=== PATIENT | female | born 1980 | race Caucasian/White ===

== ENCOUNTER 2023-08-13 09:44 | Emergency (ER) | payer OTHER, SELFPAY ==
[2023-08-13 09:59] VITALS: BP 128/92; PULSE 114; RESP 18; TEMP 35.8; O2SAT 97; BMI 28.5
--- NOTE | 2023-08-13 14:30 | ED_ITS ---
HPI - General Adult General Chief complaint: General Medical Stated complaint: Withdrawal symptoms Time Seen by Provider: 08/13/23 14:22 Source: patient Mode of arrival: ambulatory Limitations: no limitations History of Present Illness ED Provider: Umang Gibson PA-C HPI narrative: This is a 43 yo female pmh opiod use disorder, tardive dyskinesia presents with withdrawal symptoms including tremors, shaking, pins and needles, as well as chills after not receiving her correct prescribed medications. Patient reports she was recently discharged from [facility] and her prescriptions she was prescribed were not given correctly (specifically Suboxone). Reports the last time she received her correct medications was yesterday morning. Patient is now at [facility]. Denies fever, chest pain, SOB, vomiting, diarrhea, constipation, trauma, falls, syncope, difficulty ambulating. Denies SI/HI. Patient states she previously was using Fentanyl but reports she has been sober for a little over a month. Related Data Home Medications ?Medication ?Instructions ?Recorded ?Confirmed buprenorphine 8 mg-naloxone 2 mg 1 film buccal DAILY 08/13/23 08/13/23 sublingual film buprenorphine 8 mg-naloxone 2 mg 2 film buccal DAILY 08/13/23 08/13/23 sublingual film clonazepam 1 mg tablet 1 mg PO BID 08/13/23 08/13/23 gabapentin 400 mg capsule 800 mg PO TID 08/13/23 08/13/23 methocarbamol 500 mg tablet 500 mg BID 08/13/23 08/13/23 mirtazapine 15 mg tablet 15 mg PO BEDTIME 08/13/23 08/13/23 nicotine 21 mg/24 hr daily 1 patch transdermal DAILY 08/13/23 08/13/23 transdermal patch omeprazole 40 mg capsule,delayed 40 mg PO DAILY 08/13/23 08/13/23 release quetiapine 100 mg tablet 100 mg PO BID 08/13/23 08/13/23 quetiapine 300 mg tablet 600 mg PO BEDTIME 08/13/23 08/13/23 thiothixene 5 mg PO BID 08/13/23 08/13/23 Previous Rx's ?Medication ?Instructions ?Recorded buprenorphine 8 mg-naloxone 2 mg 2 film buccal DAILY 7 days #21 ea 08/13/23 sublingual film (Suboxone) Allergies Allergy/AdvReac Type Severity Reaction Status Date / Time methocarbamol [From Robaxin] Allergy Seizure Verified 08/13/23 10:04 haloperidol [From Haldol] AdvReac Involuntary Verified 08/13/23 10:04 Spasms Review of Systems 2 Review of Systems: Yes all other systems are reviewed and are negative [facility] Past Medical History Attestation statement: The following information was validated with the patient. Source: old records reviewed and nursing notes reviewed Social History Social History Advance Directives: No Physical Exam ED Vital Signs: Vital Signs - 24 hr 08/13/23 09:59 Temperature 96.4 F L Pulse Rate 114 H Respiratory Rate 18 Blood Pressure 128/92 H Pulse Oximetry 97 Oxygen Delivery Method Room Air BMI result Body Mass Index 28.5 vss. Appearance: Alert.? Oriented X3.? No acute distress.?+Facial grimacing and facial tics, difficulty with speech secondary to this Head: Normocephalic, atraumatic, no step-offs or deformities Eyes: Pupils equal, round and reactive to light.? Neck: Normal inspection.? Neck supple.? CVS: Normal heart rate and rhythm.? Pulses normal.? Respiratory: No respiratory distress.? Breath sounds normal.? Abdomen: Soft and nontender.? Skin: Skin warm and dry.? Normal skin color.? Normal skin turgor.? Extremities: +Shaking and tremors to bilateral upper and lower extremities Back: No midline tenderness, no C-spine tenderness, full range of motion, no CVA tenderness bilaterally Neuro: Oriented X 3.? No motor deficit.? No sensory deficit. CN 2-12 intact Course Reevaluation(s) Reevaluation #1: Patient came from [facility] but was at [facility] where they were supposed to send meds to [facility]. Nurse spoke to [facility] who reached out to [facility] multiple times in regards to insurance info which they were not able to get. Information was finally able to be obtained from [facility] after nursing staff reached out. Suboxone dose was placed incorrectly initially. Will send correct dose to [facility] as confirmed on piece of paper from [facility] 10/02 two films in the am and one at 1700. All other prescriptions are correct and [facility] has now from [facility] so no need to send those from ED at this time. Time: 15:10 Reevaluation #2: Educated patient on diagnosis and treatment plan, answered all question, patient verbalizes understanding. At this time patient will be discharged home, advised to return with new or worsening symptoms. Educated on worrisome signs and symptoms and when to return. At this time I feel comfortable discharge home. Time: 15:23 Medications Administered Discontinued Medications Generic Name Dose Route Start Last Admin Trade Name Zay PRN Reason Stop Dose Admin Buprenorphine/Naloxone 1 film 08/13/23 14:51 08/13/23 15:14 Buprenorphine/Naloxone 8/2 Mg Film SUBLINGUAL 08/13/23 14:52 1 film ONCE ONE Administration Buprenorphine/Naloxone 1 film 08/13/23 15:07 08/13/23 15:14 Buprenorphine/Naloxone 8/2 Mg Film SUBLINGUAL 08/13/23 15:08 1 film ONCE ONE Administration Clonazepam 1 mg 08/13/23 15:07 08/13/23 15:13 Clonazepam 1 Mg Tablet PO 08/13/23 15:08 1 mg ONCE ONE Administration Medical Decision Making Medical Decision Making [facility] Narrative: 1430 43 yo female pmh opioid dependence and tardive dykinesia presents for withdrawl symtpoms including shaking, tremors, pins and needles, chills since yesterday after not recieving her prescribed medications (specifically Suboxone) PE: ?+Facial grimacing and facial tics, difficulty with speech secondary to this Extremities: +Shaking and tremors to bilateral upper and lower extremities Differential: Prescription management, withdrawal symptoms, exacerbation of tardive dyskinesia. Unlikely seizure, brain bleed, stroke, chorea, parkinsonism. Plan: Labs, prescription management Differential Diagnosis Differential Diagnoses: The differential diagnosis associated with the presentation includes Prescription management, withdrawal symptoms, exacerbation of tardive dyskinesia. Unlikely seizure, brain bleed, stroke, chorea, parkinsonism. Admission/Observation Consideration of admission/observation: Escalation of care including admission/observation considered unlikely Consult Healthcare Provider Management of the patient was discussed with: Video Poker Floorman (Humberto/ Sienna mcclure ) Lab Data [facility] Lab Attestation statement: I reviewed the patient's lab results. 08/13/23 14:32 08/13/23 14:32 Labs: Lab Results 08/13/23 Range/Units 14:32 WBC 7.0 (4.8-10.8) X10*3/uL RBC 4.10 L (4.20-5.50) X10*6/uL Hgb 12.3 (12.0-16.0) g/dl Hct 35.4 L (37.0-47.0) % MCV 86.3 (80.0-98.0) fL MCH 30.0 (27.0-33.0) pg MCHC 34.7 (31.0-35.0) g/dl RDW 13.8 (11.0-16.0) % Plt Count 456 H (160-400) X10*3/uL MPV 9.5 (9.4-12.3) fL Immature Gran % (Auto) 0.3 (0.0-0.4) % Neut % (Auto) 57.9 (45-73) % Lymph % (Auto) 32.7 (20-40) % Banks % (Auto) 6.0 (2-11) % Eos % (Auto) 2.7 (0-4) % Baso % (Auto) 0.4 (0-2) % Lymph # (Auto) 2.3 (1.2-4.9) X10*3/uL Banks # (Auto) 0.4 (0.1-1.2) X10*3/uL Eos # (Auto) 0.2 (0.0-0.4) X10*3/uL Baso # (Auto) 0.0 (0.0-0.2) X10*3/uL Abs Immat Gran (auto) 0.02 (0.00-0.03) X10*3/uL Absolute Neuts (auto) 4.1 (2.0-8.3) x10*3/uL Absolute Nucleated RBC 0.000 (0.0-0.012) X10*3/uL Nucleated RBC % (auto) 0.0 (0.0-0.2) /100WBC Sodium 143 (135-145) mmol/L Potassium 4.2 (3.3-5.1) mmol/L Chloride 104 (96-108) mmol/L Carbon Dioxide 27 (22-29) mmol/L Anion Gap 16 (12-20) BUN 10 (9-16) mg/dL Creatinine 0.68 (0.5-1.4) mg/dL Estim Creat Clear Calc 105.9 Estimated GFR > 60 Random Glucose 104 (60-115) mg/dL Calcium 10.3 H (8.4-10.2) mg/dL Magnesium 2.0 (1.6-2.6) mg/dL Total Bilirubin 0.2 (0.0-1.0) mg/dL AST 21 (5-31) U/L ALT 21 (0-31) U/L Alkaline Phosphatase 89 (39-117) U/L Total Protein 7.8 (6.5-8.0) g/dL Albumin 4.3 (3.5-5.0) g/dL Lipase 10 (8-78) U/L Urine Color Yellow Urine Appearance Clear Urine pH 7.5 (5.0-9.0) Ur Specific [place] 1.020 (1.005-1.025) Urine Protein Negative (Neg-Trace) mg/dL Urine Glucose (UA) Negative (Negative) mg/dL Urine Ketones Negative (Negative) mg/dL Urine Blood Negative (Negative) Urine Nitrite Negative (Negative) Ur Leukocyte Esterase Negative (Negative) Urine Opiates Screen Not Detected (Not Detect) Ur Buprenorphine Scrn Positive H (Not Detect) ng/mL Ur Oxycodone Screen Not Detected (Not Detect) ng/mL Urine Methadone Screen Not Detected (Not Detect) ng/mL Urine Fentanyl Screen Not Detected (Not Detect) Ur Barbiturates Screen Not Detected (Not Detect) Ur Phencyclidine Scrn Not Detected (Not Detect) Ur Amphetamines Screen Not Detected (Not Detect) U Benzodiazepines Scrn Not Detected (Not Detect) Urine Cocaine Screen Not Detected (Not Detect) U Marijuana (THC) Screen Not Detected (Not Detect) Ethyl Alcohol < 10 mg/dL Chronic Conditions Patient?s care impacted by: Other (Opioid dependence, tardive dyskinesia) Social Determinants Patient?s care significantly limited by Social Determinants of Health including: Inadequate housing, Problems related to primary support group and Other Social Determinant of Health Discharge Plan Discharge Clinical Impression: Medication refill, Opiate use Patient Disposition: Home, Self-Care Instructions: Opioid Use Disorder (ED) Additional Instructions: Take your medications as prescribed. If you were prescribed antibiotics today, it is important that you take your medication to their entirety, do not skip any doses, do not finish them early. Follow-up with your primary care provider this week. Return to the emergency department with new or worsening symptoms. Such as fevers, chills, chest pain, shortness of breath, nausea, vomiting, dizziness, headache, vision changes, lethargy In case of emergency call 911 Prescriptions: New buprenorphine-naloxone [Suboxone] 8-2 mg film 2 film buccal DAILY 7 Days Qty: 21 0RF Rx Instructions: Take two films in the AM and one film at 1700. No Action methocarbamol 500 mg Tablet 500 mg BID quetiapine 300 mg Tablet 600 mg PO BEDTIME Rx Instructions: 2 tablets PO QHS gabapentin 400 mg Capsule 800 mg PO TID clonazepam 1 mg Tablet 1 mg PO BID omeprazole 40 mg Capsule,Delayed Release(Dr/Ec) 40 mg PO DAILY quetiapine 100 mg Tablet 100 mg PO BID nicotine 21 mg/24 hr Patch 24 Hour 1 patch TRANSDERMAL DAILY mirtazapine 15 mg Tablet 15 mg PO BEDTIME buprenorphine-naloxone 8-2 mg Film 2 film BUCCAL DAILY Rx Instructions: place 1 film on inside of (each) cheek buprenorphine-naloxone 8-2 mg Film 1 film BUCCAL DAILY thiothixene 5 mg 5 mg PO BID Referrals: ED Physician,Generic [Physician] - 2 days Stand Alone Forms: Work/School Release Print Language: Greenlandic
[2023-08-13 14:38] LABS: MANUAL DIFF FLAG NO
[2023-08-13 14:42] LABS: Appearance Urine Clear; Color Urine Yellow; Glucose Urine UA Negative (Negative); Leukocyte Esterase Urine Negative (Negative); Nitrite Urine Negative (Negative); PH 7.5 (5.0-9.0); Urine Blood Negative (Negative); Urine Ketones Negative (Negative); Urine Protein Negative (Neg-Trace)
[2023-08-13 14:43] LABS: Basophils Percent Auto 0.4 % (0-2); Eosinophils Absolute Auto 0.2 X10*3/uL (0.0-0.4); Eosinophils Percent Auto 2.7 % (0-4); Hematocrit 35.4 % (37.0-47.0); Hemoglobin 12.3 g/dl (12.0-16.0); Imm Gran Abs Auto 0.02 X10*3/uL (0.00-0.03); Imm Gran Pct Auto 0.3 % (0.0-0.4); Lymphocytes Absolute Auto 2.3 X10*3/uL (1.2-4.9); Lymphocytes Percent Auto 32.7 % (20-40); Mean Corpuscular HGB Conc 34.7 g/dl (31.0-35.0); Mean Corpuscular Volume 86.3 fL (80.0-98.0); Mean Platelet Volume 9.5 fL (9.4-12.3); Monocytes Absolute Auto 0.4 X10*3/uL (0.1-1.2); Neutrophils Absolute Auto 4.1 x10*3/uL (2.0-8.3); Neutrophils Percent Auto 57.9 % (45-73); Platelet Count 456 X10*3/uL (160-400); Red Cell Distribution Width 13.8 % (11.0-16.0)
[2023-08-13 14:51] LABS: Amphetamine Screen Urine Not Detected (Not Detect); Barbiturates, Urine Not Detected (Not Detect); Benzodiazepines Screen Urine Not Detected (Not Detect); Buprenorphine Scr Positive (Not Detect); Cannabinoid Screen Urine Not Detected (Not Detect); Cocaine Screen Urine Not Detected (Not Detect); Fentanyl, urine Not Detected (Not Detect); Methadone Screen, Urine Not Detected (Not Detect); Opiate Screen Urine Not Detected (Not Detect); Oxycodone Screen Urine Not Detected (Not Detect); Phencyclidine Screen Urine Not Detected (Not Detect)
[2023-08-13 14:56] LABS: Alanine Aminotransferase 21 U/L (0-31); Albumin Level 4.3 g/dL (3.5-5.0); Alkaline Phosphatase 89 U/L (39-117); Anion Gap 16 (12-20); Aspartate Amino Transferase 21 U/L (5-31); Bilirubin Total 0.2 mg/dL (0.0-1.0); Blood Urea Nitrogen 10 mg/dL (9-16); Calcium 10.3 mg/dL (8.4-10.2); Carbon Dioxide 27 mmol/L (22-29); Chloride 104 mmol/L (96-108); Creatinine Clr Calc Pharmacy 105.9; Estimated Glomerular Filt Rate > 60; Ethanol < 10 mg/dL; Glucose Random 104 mg/dL (60-115); Lipase 10 U/L (8-78); Potassium 4.2 mmol/L (3.3-5.1); Sodium 143 mmol/L (135-145); Total Protein 7.8 g/dL (6.5-8.0)
[2023-08-13] MEDS: clonazePAM 1 MG TABLET PO (15:13)
[2023-08-13] MEDS: Buprenorphine/Naloxone 8/2 mg FILM 1 FILM SUBLINGUAL ×2 (15:14)
[2023-08-13 16:26] VITALS: BP 128/92; PULSE 114; RESP 18; TEMP 35.8; O2SAT 97
== END 2023-08-13 16:26 | disposition home or self-care (01) ==
PROVIDERS: Physician Assistant; Emergency Provider Emergency Medicine Emergency Medical Services
DX: F11.90 Opioid use, unspecified, uncomplicated (principal); G24.01 Drug induced subacute dyskinesia; Z76.0 Encounter for issue of repeat prescription; Z79.899 Other long term (current) drug therapy
CPT/HCPCS: 36415; 80053; 80307; 81003; 83690; 83735; 85025; 99282; 99284

== ENCOUNTER 2024-09-29 20:05 | Inpatient (IN) | payer OTHER, SELFPAY ==
--- NOTE | ~2024-09-29 | XR_ITS ---
CLINICAL HISTORY: PNA 2 view chest x-ray. Comparison: None provided Findings: There are possible faint bilateral reticulonodular opacities throughout the lungs. There is no consolidation or effusion. Cardiomediastinal silhouette is within normal limits. IMPRESSION: Possible faint bilateral reticulonodular opacities throughout the lungs. Atypical infection is possible. This document has been electronically signed by: Sarwat Carr MD on 10/06/2024 00:54:37
[2024-09-29 21:39] VITALS: BP 122/63; PULSE 70; RESP 16; TEMP 36.8; O2SAT 96
[2024-09-29 21:41] VITALS: BMI 26.6
[2024-09-29] MEDS: oxyBUTYnin chloride ER 5 MG TAB.ER.24 PO (22:45)
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
[2024-09-30 07:00] VITALS: BMI 25.9
[2024-09-30 07:32] VITALS: BP 117/67; PULSE 80; RESP 18; TEMP 36.8; O2SAT 96
[2024-09-30 08:19] LABS: Hemoglobin A1C 88.1623 umol/L; Total Hemoglobin (HGBA1C) 2673.8357 umol/L
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
[2024-09-30 08:40] LABS: Cholesterol 162 mg/dL (<200); HDL Cholesterol 35 mg/dL (>40); Magnesium 2.1 mg/dL (1.6-2.6); Triglycerides 122 mg/dL (<150)
[2024-09-30] MEDS: Nicotine 21 MG PATCH.TD24 TRANSDERMA (08:42)
[2024-09-30 08:46] LABS: Free T4 (Free Thyroxine) 1.04 ng/dL (0.71-1.85); Thyroid Stimulating Hormone 0.94 uIU/mL (0.32-4.0)
[2024-09-30 08:58] LABS: Folate 11.5 ng/mL (> or = 4.0); Vitamin B12 678 pg/mL (200-900)
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
[2024-09-30] MEDS: Albuterol Sulfate 90 MCG 8 GM INHALER 2 PUFF INHALE (10:47)
[2024-09-30] MEDS: Tiotropium Bromide 2.5 mcg 1 PUFF/2.5 MCG MIST.INHAL 2 PUFF INHALE (12:18)
[2024-09-30 16:15] VITALS: BP 121/75; PULSE 62; RESP 18; TEMP 37.4; O2SAT 98
--- NOTE | 2024-09-30 16:23 | PC.NURSE ---
Patient current medication list verified by Rosio Botello [facility] [place], [place] [phone].
--- NOTE | 2024-09-30 17:15 | PHA.MEDREC ---
Pharmacy Consult ? Medication Reconciliation Pharmacy has reviewed the medication reconciliation completed by nursing. Confirmed with RN that the correct Beztropine dose is 0.5mg BID, and asked RN to update this in the med rec.
[2024-09-30 20:00] VITALS: BP 147/85; PULSE 86; RESP 16; TEMP 37.2; O2SAT 98
[2024-09-30] MEDS: traZODone HCL 25 MG HALFTAB 75 MG PO (20:21)
[2024-10-01] MEDS: Nicotine 21 MG PATCH.TD24 TRANSDERMA (08:38)
[2024-10-01] MEDS: Tiotropium Bromide 2.5 mcg 1 PUFF/2.5 MCG MIST.INHAL 2 PUFF INHALE (08:38)
--- NOTE | 2024-10-01 10:20 | P.PNPSI_ITS ---
Subjective Subjective Date of Service: 10/01/24 Reason For Visit: Depression d/o unspecified,alcohol uncomplicated Subjective Notes: Conditional Voluntary Interim History: Active on unit. social with peers. attending groups. retracted 3 day notice. Continues to report feeling anxious. focused on sobriety; plans on attending meets. denies withdrawal symptoms; DC CIWA. denies SI/HI/VH/AH. pt is requesting increase in trazodone to help with sleep. Trazodone increased to 100mg PO bedtime. Start: Clonidine 0.1mg PO BID PRN anxiety. Medication Compliance: Yes Side effects from medications: No Attending Groups: Yes Mental Status Exam Mental Status Exam Narrative: Pt is alert and oriented; behavior is cooperative and calm; dressed in casual attire; mood is described as anxious ; eye contact appropriate; Speech is normal rate, volume and not pressured; thought process is organized and goal directed; Thought content is on tx; denies SI/HI/VH/AH. Diagnostics Vital Signs (24Hr): Vital Signs - 24 hr 09/30/24 16:15 09/30/24 20:00 Temperature 99.3 F 98.9 F Pulse Rate 62 86 Respiratory Rate 18 16 Blood Pressure 121/75 147/85 H Pulse Oximetry 98 98 Oxygen Delivery Method Room Air Room Air BMI result Body Mass Index 25.9 Labs Labs: Laboratory Results - last 48 hr 09/30/24 08:00 Estimat Average Glucose 103 Hemoglobin A1c % 5.2 Magnesium 2.1 Triglycerides 122 Cholesterol 162 LDL Cholesterol, Calc 103 H HDL Cholesterol 35 L Vitamin B12 678 Folate 11.5 TSH 0.94 Free T4 1.04 Medications Medications Current Medications Acetaminophen (Acetaminophen 325 Mg Tablet) 650 mg PO Q6H PRN PRN Reason: Headache/Pain, Scale 1-10 Last Admin: 09/30/24 16:39 Dose: 650 mg Al Hydroxide/Mg Hydroxide (Magnesium Hydrox/Alum Hydrox 30 Ml Oral.Susp) 30 ml PO Q6H PRN PRN Reason: Heartburn/Nausea Albuterol Sulfate (Albuterol Sulfate 90 Mcg 8 Gm Inhaler) 2 puff INHALE RQ6H PRN PRN Reason: Shortness of Breath Last Admin: 09/30/24 10:47 Dose: 2 puff Benztropine Mesylate (Benztropine Mesylate 0.5 Mg Tablet) 0.5 mg PO BID [place]O Last Admin: 10/01/24 08:34 Dose: 0.5 mg Clonazepam (Clonazepam 0.5 Mg Tablet) 0.5 mg PO TID PRN PRN Reason: Anxiety Last Admin: 10/01/24 08:57 Dose: 0.5 mg Gabapentin (Gabapentin 400 Mg Capsule) 800 mg PO TID [facility] Last Admin: 10/01/24 08:34 Dose: 800 mg Hydroxyzine HCl (Hydroxyzine Hcl 25 Mg Tablet) 25 mg PO Q6H PRN PRN Reason: mild anxiety Lorazepam (Lorazepam 1 Mg Tablet) 1 mg PO Q2H PRN PRN Reason: ciwa 6-10 Last Admin: 09/30/24 20:23 Dose: 1 mg Lorazepam (Lorazepam 1 Mg Tablet) 2 mg PO Q2H PRN PRN Reason: ciwa 11+ Lurasidone HCl (Lurasidone Hcl 20 Mg Tablet) 20 mg PO BEDTIME [facility] Last Admin: 09/30/24 20:23 Dose: 20 mg Magnesium Hydroxide (Milk Of Magnesia 30 Ml Oral.Susp) 30 ml PO DAILY PRN PRN Reason: Constipation Methocarbamol (Methocarbamol 500 Mg Tablet) 500 mg PO BID [facility] Last Admin: 10/01/24 08:35 Dose: 500 mg Nicotine (Nicotine 21 Mg Patch.Td24) 21 mg TRANSDERMA DAILY [facility] Last Admin: 10/01/24 08:38 Dose: 21 mg Nicotine Polacrilex (Nicotine Polacrilex 2 Mg Gum) 4 mg BUCCAL Q2H PRN PRN Reason: Nicotine Cravings Non-Formulary Medication (Tiotropium-Olodaterol [Stiolto Respimat]) 2 inhalation INHALE DAILY [facility] Olanzapine (Olanzapine 5 Mg Tablet) 5 mg PO BID [facility] Last Admin: 10/01/24 08:34 Dose: 5 mg Omeprazole (Omeprazole 40 Mg Capsule.Dr) 40 mg PO DAILY@0630 [facility] Last Admin: 10/01/24 06:07 Dose: 40 mg Oxybutynin Chloride (Oxybutynin Chloride 5 Mg Tablet) 5 mg PO DAILY [facility] Last Admin: 10/01/24 08:34 Dose: 5 mg Thiamine HCl (Thiamine Hcl 100 Mg Tablet) 100 mg PO DAILY [facility] Last Admin: 10/01/24 08:48 Dose: Not Given Tiotropium [place] (Tiotropium [place] 2.5 Mcg 1 Puff/2.5 Mcg Mist.Inhal) 2 puff INHALE RDAILY [facility] Last Admin: 10/01/24 08:38 Dose: 2 puff Trazodone HCl (Trazodone Hcl 25 Mg Halftab) 75 mg PO BEDTIME [facility] Last Admin: 09/30/24 20:21 Dose: 75 mg Valacyclovir HCl (Valacyclovir Hcl 500 Mg Tablet) 500 mg PO BID [facility] Last Admin: 10/01/24 08:34 Dose: 500 mg Allergies Allergies Allergy/AdvReac Type Severity Reaction Status Date / Time haloperidol (From Haldol) AdvReac Involuntary Verified 08/13/23 10:04 Spasms Assessment & Plan Assessment & Plan (1) Bipolar disorder: Status: Acute Code(s): F31.9 - Bipolar disorder, unspecified (2) PTSD (post-traumatic stress disorder): Status: Acute Code(s): F43.10 - Post-traumatic stress disorder, unspecified (3) Alcohol use disorder: Status: Acute Code(s): F10.90 - Alcohol use, unspecified, uncomplicated Plan Patient is a 44 year old female with hx of bipolar d/o, PTSD, alcohol use d/o who self presented to ER d/t suicidal ideation secondary to increased anxiety and depression from relapsing on alcohol. Plan: CV 15 minute safety checks continue home medications obtain collateral referral to outpatient psychiatric prescriber referral to substance abuse program encourage groups discharge planning 10/01: Active on unit. social with peers. attending groups. retracted 3 day notice. Continues to report feeling anxious. focused on sobriety; plans on attending meets. denies withdrawal symptoms; DC CIWA. denies SI/HI/VH/AH. pt is requesting increase in trazodone to help with sleep. Trazodone increased to 100mg PO bedtime. Start: Clonidine 0.1mg PO BID PRN anxiety. Patient educated on: diagnosis, medication risk/benefits and therapeutic strategies Reason for continued inpatient stay Substantial Risk for: med/psych decompensation Time Spent With Patient Time: Total time managing care of this patient today _20___ minutes.
[2024-10-01 11:02] VITALS: BP 121/74; PULSE 83; RESP 17; TEMP 36.3; O2SAT 99
[2024-10-01 15:10] VITALS: BP 108/65
[2024-10-01 19:57] VITALS: BP 91/53; PULSE 74; TEMP 36.8; O2SAT 94
[2024-10-02] MEDS: Nicotine Polacrilex Lozenge 2 MG LOZENGE BUCCAL ×2 (07:01→20:42)
[2024-10-02 07:46] VITALS: BP 89/51; PULSE 62; RESP 16; TEMP 36.6; O2SAT 98
[2024-10-02] MEDS: Nicotine 21 MG PATCH.TD24 TRANSDERMA (08:27)
[2024-10-02] MEDS: Tiotropium Bromide 2.5 mcg 1 PUFF/2.5 MCG MIST.INHAL 2 PUFF INHALE (08:29)
[2024-10-02] MEDS: Magnesium Hydrox/Alum Hydrox 30 ML ORAL.SUSP PO (16:12)
[2024-10-02 20:22] VITALS: BP 107/59; PULSE 71; RESP 16; TEMP 36.4; O2SAT 94
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
[2024-10-03] MEDS: Nicotine Polacrilex Lozenge 2 MG LOZENGE BUCCAL (07:14)
[2024-10-03 08:00] VITALS: BP 98/56; PULSE 70; RESP 16; TEMP 36.2; O2SAT 93
[2024-10-03] MEDS: Nicotine 21 MG PATCH.TD24 TRANSDERMA (08:13)
[2024-10-03] MEDS: Tiotropium Bromide 2.5 mcg 1 PUFF/2.5 MCG MIST.INHAL 2 PUFF INHALE (08:15)
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
[2024-10-04 08:00] VITALS: BP 108/65; PULSE 80; RESP 16; TEMP 36.4; O2SAT 99
[2024-10-04] MEDS: Tiotropium Bromide 2.5 mcg 1 PUFF/2.5 MCG MIST.INHAL 2 PUFF INHALE (08:24)
[2024-10-04] MEDS: Nicotine Polacrilex Lozenge 2 MG LOZENGE BUCCAL ×3 (08:26→15:43)
[2024-10-04] MEDS: Nicotine 21 MG PATCH.TD24 TRANSDERMA (08:26)
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
[2024-10-04 11:55] VITALS: BP 114/74
[2024-10-04 16:30] LABS: Resp Syncy Virus RNA Qual PCR NEGATIVE (Negative); SARS COV2 PCR INHOUSE NEGATIVE (Negative)
[2024-10-04 20:00] VITALS: BP 125/76; PULSE 56; RESP 16; TEMP 36.4; O2SAT 96
--- NOTE | 2024-10-04 21:07 | PC.NURSE ---
submitted 3 day notice UP 10/07
[2024-10-05] MEDS: Milk of Magnesia 30 ML ORAL.SUSP PO (06:25)
[2024-10-05] MEDS: Albuterol Sulfate 90 MCG 8 GM INHALER 2 PUFF INHALE ×2 (06:25→20:34)
[2024-10-05] MEDS: Tiotropium Bromide 2.5 mcg 1 PUFF/2.5 MCG MIST.INHAL 2 PUFF INHALE ×2 (06:27→06:43)
--- NOTE | 2024-10-05 06:41 | PC.NURSE ---
Christine reporting some constipation. Patient given MOM PO prn and some prune juice. Pending effects.
--- NOTE | 2024-10-05 06:50 | PC.NURSE ---
Christine reported some shortness of breath. Patient requested her Spiriva inhaler early. Was given at 0640, scheduled for 0800. Patient also given albuterol inhaler at this time.
[2024-10-05 07:54] VITALS: BP 106/68; PULSE 88; RESP 14; TEMP 36.7; O2SAT 92
[2024-10-05] MEDS: Nicotine 21 MG PATCH.TD24 TRANSDERMA (08:34)
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
[2024-10-05 20:25] VITALS: BP 114/60; PULSE 78; RESP 20; TEMP 37.3; O2SAT 91
--- NOTE | 2024-10-05 20:50 | PC.NURSE ---
Pt c/o productive cough and feeling like she couldn't breathe . Temp 99.1, O2 sat 91% on room air. Hx COPD. Pt concerned that she had pneumonia, as she has had it in the past. Nicole Pereyra NP aware and hospitalist consult ordered.
--- NOTE | 2024-10-05 23:05 | PC.NURSE ---
Addendum entered by Sabrina Yan RN 10/06/24 07:19: Pt received scheduled HS olanzapine around 0030 after being seen by hospitalist, as she was more awake after consult and having chest xray and labs completed. Original Note: Pt was difficult to wake for HS meds. When pt did sit up to take meds she appeared sedated and dropped a pill on the floor. By the time TW pulled a new tablet and returned to her room the pt was back asleep and difficult to wake. She did not receive her HS olanzapine 10 mg. Provider aware.
--- NOTE | 2024-10-05 23:54 | HO.PM.IMCN ---
History of Present Illness Data of Consult Service Date: 10/05/24 Requesting physician: Nicole Pereyra Primary Care Provider: Unknown Physician HPI Reason for consult: ? PNA Pt is a 44 y female with PMH alcohol use disorder, substance use disorder, COPD, tobacco dependence, recent pneumonia and sepsis at [facility] 1 week prior to admission, HSV, PTSD, bipolar disorder was seen per consultation ordered by Psychiatry for suspicion for pneumonia. Patient observed in bed with staff present, awake but took some time to respond. Patient is currently alert and orientated x3 and can verbalize productive cough that is yellow to green that has gotten worse over the last 24 hours. Patient feels like she has a fever but denies chills or night sweats. Patient denies any nausea or vomiting or abdominal pain. Patient denies any chest pain or shortness of breath at rest. Patient can get somewhat winded when exerting herself. No evidence of hypoxia. Patient was an active smoker prior to admission but states she is not consistently smoked since her admission at [facility] prior to this admission for pneumonia and sepsis. Patient currently cooperative with care and agreeable to chest x-ray, labs, medications. Review of Systems Review of Systems: Pt denies chest pain, SOB at rest but is having a productive cough with green yellow sputum, worse tonight than yesterday. Patient denies a sore throat, dental issues or trouble swallowing. Pt reports no chills but is feeling feverish. Pt denies any diarrhea or constipation. Pt does smoke prior to coming in 6-8 cigraettes per day. Yes all other systems are reviewed and are negative [facility] Medical History (Updated 10/06/24 @ 00:11 by EVARISTO Watkins) COPD (chronic obstructive pulmonary disease) Substance use disorder Tobacco dependence Pneumonia Cognitive capacity: A/O X3 Functional capacity: independent ambulation Patient : No (Testing ordered) Social History Household Members: Family and None Housing: Homeless Do you presently have visiting nurse or other home services: No Patient Tobacco Use Status: Current everyday Tobacco user Tobacco use type: Cigarette e-Cigarette/Vaping Use: Never Used Second Hand Smoke Exposure: No service: No Sexual orientation: Straight/Heterosexual Ebola Risk: Travel/Contact With Anyone From Affected Area/s: No Has Patient Experienced Ebola Symptoms: No Meds Allergies Allergy/AdvReac Type Severity Reaction Status Date / Time haloperidol (From Haldol) AdvReac Involuntary Verified 08/13/23 10:04 Spasms Active Medications: Current Medications Acetaminophen (Acetaminophen 325 Mg Tablet) 650 mg PO Q6H PRN PRN Reason: Headache/Pain, Scale 1-10 Last Admin: 10/03/24 20:30 Dose: 650 mg Al Hydroxide/Mg Hydroxide (Magnesium Hydrox/Alum Hydrox 30 Ml Oral.Susp) 30 ml PO Q6H PRN PRN Reason: Heartburn/Nausea Last Admin: 10/02/24 16:12 Dose: 30 ml Albuterol Sulfate (Albuterol Sulfate 90 Mcg 8 Gm Inhaler) 2 puff INHALE RQ6H PRN PRN Reason: Shortness of Breath Last Admin: 10/05/24 20:34 Dose: 2 puff Azithromycin (Azithromycin 500 Mg Tablet) 500 mg PO ONCE ONE Stop: 10/05/24 23:49 Azithromycin (Azithromycin 250 Mg Tablet) 250 mg PO Q24H COUNTS INCLUDE 234 BEDS AT THE [facility] Benztropine Mesylate (Benztropine Mesylate 0.5 Mg Tablet) 0.5 mg PO BID COUNTS INCLUDE 234 BEDS AT THE [facility] Last Admin: 10/05/24 22:44 Dose: 0.5 mg Clonazepam (Clonazepam 0.5 Mg Tablet) 0.5 mg PO BID PRN PRN Reason: Anxiety Clonidine HCl (Clonidine Hcl 0.1 Mg Tablet) 0.1 mg PO BID PRN; Protocol PRN Reason: Anxiety, mild Last Admin: 10/04/24 11:55 Dose: 0.1 mg Gabapentin (Gabapentin 400 Mg Capsule) 800 mg PO TID COUNTS INCLUDE 234 BEDS AT THE [facility] Last Admin: 10/05/24 22:44 Dose: 800 mg Guaifenesin (Guaifenesin 200 Mg/10 Ml 10 Ml Liquid) 10 ml PO Q6H PRN PRN Reason: Cough Ibuprofen (Ibuprofen 800 Mg Tablet) 800 mg PO ONCE ONE Stop: 10/05/24 23:49 Magnesium Hydroxide (Milk Of Magnesia 30 Ml Oral.Susp) 30 ml PO DAILY PRN PRN Reason: Constipation Last Admin: 10/05/24 06:25 Dose: 30 ml Methocarbamol (Methocarbamol 500 Mg Tablet) 500 mg PO BID COUNTS INCLUDE 234 BEDS AT THE [facility] Last Admin: 10/05/24 22:44 Dose: 500 mg Nicotine (Nicotine 21 Mg Patch.Td24) 21 mg TRANSDERMA DAILY COUNTS INCLUDE 234 BEDS AT THE [facility] Last Admin: 10/05/24 08:34 Dose: 21 mg Nicotine Polacrilex (Nicotine Polacrilex 2 Mg Gum) 4 mg BUCCAL Q2H PRN PRN Reason: Nicotine Cravings Nicotine Polacrilex (Nicotine Polacrilex Lozenge 2 Mg Lozenge) 2 mg BUCCAL Q2H PRN PRN Reason: Nicotine Cravings Last Admin: 10/04/24 15:43 Dose: 2 mg Olanzapine (Olanzapine 10 Mg Tablet) 10 mg PO BID COUNTS INCLUDE 234 BEDS AT THE [facility] Last Admin: 10/05/24 23:01 Dose: Not Given Omeprazole (Omeprazole 40 Mg Capsule.Dr) 40 mg PO DAILY@0630 COUNTS INCLUDE 234 BEDS AT THE [facility] Last Admin: 10/05/24 06:17 Dose: 40 mg Oxybutynin Chloride (Oxybutynin Chloride 5 Mg Tablet) 5 mg PO BEDTIME COUNTS INCLUDE 234 BEDS AT THE [facility] Last Admin: 10/05/24 22:44 Dose: 5 mg Tiotropium [place] (Tiotropium [place] 2.5 Mcg 1 Puff/2.5 Mcg Mist.Inhal) 2 puff INHALE RDAILY COUNTS INCLUDE 234 BEDS AT THE [facility] Last Admin: 10/05/24 06:43 Dose: 2 puff Trazodone HCl (Trazodone Hcl 100 Mg Tablet) 100 mg PO BEDTIME COUNTS INCLUDE 234 BEDS AT THE [facility] Last Admin: 10/05/24 22:44 Dose: 100 mg Valacyclovir HCl (Valacyclovir Hcl 500 Mg Tablet) 500 mg PO BID COUNTS INCLUDE 234 BEDS AT THE [facility] Last Admin: 10/05/24 22:44 Dose: 500 mg Home Medications ?Medication ?Instructions ?Recorded ?Confirmed ?Last Taken ?Type gabapentin 400 mg capsule 800 mg PO TID 08/13/23 09/29/24 08/12/23 History (Neurontin) methocarbamol 500 mg tablet 500 mg PO BID 08/13/23 09/29/24 08/13/23 14:51 History nicotine 21 mg/24 hr daily 1 patch transdermal DAILY 08/13/23 09/29/24 Unknown History transdermal patch (Nicoderm CQ) benztropine 0.5 mg tablet 0.5 mg PO BID 09/30/24 09/30/24 Unknown History clonazepam 0.5 mg tablet (Klonopin) 0.5 mg PO TID PRN Anxiety 09/30/24 09/30/24 Unknown History olanzapine 5 mg tablet 5 mg PO BID 09/30/24 09/30/24 Unknown History oxybutynin chloride 5 mg tablet 5 mg PO DAILY 09/30/24 09/30/24 Unknown History tiotropium 2.5 mcg-olodaterol 2.5 2 inh inhalation DAILY 09/30/24 09/30/24 Unknown History mcg/actuation mist for inhalation (Stiolto Respimat) trazodone 50 mg tablet 75 mg PO BEDTIME 09/30/24 09/30/24 Unknown History valacyclovir 500 mg tablet 500 mg PO BID 09/30/24 09/30/24 Unknown History (Valtrex) Physical Exam Vital Signs and Narrative: Vital Signs: Last Vital Signs Temp 99.1 F 10/05/24 20:25 Pulse 78 10/05/24 20:25 Resp 20 10/05/24 20:25 BP 114/60 10/05/24 20:25 Pulse Ox 91 L 10/05/24 20:25 O2 Del Method Room Air 10/05/24 20:25 BMI result Body Mass Index 25.9 Awake and alert, somewhat groggy as patient was awakened after bedtime for this intervention. Neuro: CN II-X11 intact, no deficits, visual acuity intact EYES: PERRLA, EOM intact, sclerae nonicteric, conjunctiva pink ENT: hearing intact, no issues with swallowing, uvula midline, lips moist, nares patent no epistaxis Cardiac: S1 S2 RRR, no murmur, no JVD, no edema in Lower ext Pulmonary: lungs diminished bilaterally, rhonchi noted Abdominal: BS active in all 4 quadrants, no guarding, tenderness, rebounding MSK: strength 5/5 upper and lower extremities : no CVA tenderness no bladder distension Extremities: no edema in lower extremities, PT and DP pulses palpable +2 Psych: mood stable, judgement and insight good Skin: Intact, pale Results Labs 10/06/24 00:09 10/06/24 00:09 Imaging Radiologist's Impressions: Chest x-ray two view pending Assessment and Plan (1) Pneumonia: Qualifiers: Laterality: unspecified laterality Lung location: unspecified part of lung Pneumonia type: due to unspecified organism Qualified Code(s): J18.9 - Pneumonia, unspecified organism Status: Acute Plan Pt is a 44 y female with H alcohol use disorder, substance use disorder, COPD, tobacco dependence, recent pneumonia and sepsis at [facility] 1 week prior to admission here, HSV, PTSD, bipolar disorder was seen per consultation ordered by Psychiatry for suspicion for pneumonia. Patient presents feeling febrile with rhonchorous breath sounds bilaterally and productive cough. Patient does have a low-grade temp but hemodynamics are otherwise stable. High suspicion for pneumonia noting patient did have pneumonia with sepsis less than 1 month prior. Pneumonia Viral studies pending for flu, RSV and COVID Patient is started on doxycycline (atypical coverage) and Ceftin orally as hemodynamics are stable - if symptoms do not improve may need to consider IV therapy Chest x-ray 2 view notes possible atypical PNA with B reticulonodular opacities Duo nebs q.4 scheduled while awake times 24 Hemodynamics stable, IV fluids not currently indicated - vital signs changed to q.4 times 24 Labs pending to include CBC, BMP, BNP, LA, UA Blood cultures x2 ordered, asked that ABX not be given until BC drawn Sputum sample ordered Patient does not meet the criteria for sepsis at this time No issues with hypoxia Motrin X1 for low grade temp, Tylenol PRN Reviewed plan of care with nursing staff and patient. The hospitalist group will continue to monitor this patient to ensure symptoms improve. Nursing asked to contact hospitalist group via tiger with any questions or concerns.
[2024-10-06] VITALS (7 sets, daily range): BP systolic 98–119; BP diastolic 54–82; PULSE 62–117; RESP 12–17; TEMP 36.4–37.2; O2SAT 94–97
[2024-10-06 00:16] LABS: MANUAL DIFF FLAG NO
[2024-10-06 00:28] LABS: Hematocrit 31.3 % (37.0-47.0); Hemoglobin 10.1 g/dl (12.0-16.0); Imm Gran Abs Auto 0.04 X10*3/uL (0.00-0.03); Imm Gran Pct Auto 0.4 % (0.0-0.4); Lymphocytes Absolute Auto 2.4 X10*3/uL (1.2-4.9); Mean Corpuscular HGB Conc 32.3 g/dl (31.0-35.0); Mean Corpuscular Hemoglobin 26.6 pg (27.0-33.0); Mean Corpuscular Volume 82.4 fL (80.0-98.0); NRBC Abs Auto 0.000 X10*3/uL (0.0-0.012); NRBC Pct Auto 0.0 /100WBC (0.0-0.2); Platelet Count 250 X10*3/uL (160-400); Red Blood Count 3.80 X10*6/uL (4.20-5.50); White Blood Count 10.1 X10*3/uL (4.8-10.8)
[2024-10-06 00:35] LABS: Anion Gap 12 (12-20); Blood Urea Nitrogen 12 mg/dL (9-16); Calcium 9.2 mg/dL (8.4-10.2); Carbon Dioxide 32 mmol/L (22-29); Chloride 102 mmol/L (96-108); Creatinine Clr Calc Pharmacy 89.7; Estimated Glomerular Filt Rate > 60; Potassium 4.1 mmol/L (3.3-5.1); Sodium 142 mmol/L (135-145)
[2024-10-06 00:43] LABS: B Type Natriuretic Peptide 96 pg/mL (<100)
[2024-10-06] MEDS: Nicotine 21 MG PATCH.TD24 TRANSDERMA (08:13)
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
[2024-10-06] MEDS: Albuterol/Iprat 2.5/0.5MG 3 ML AMPUL.NEB INHALE ×2 (09:10→13:17)
[2024-10-06 10:20] LABS: Resp Syncy Virus RNA Qual PCR NEGATIVE (Negative); SARS COV2 PCR INHOUSE NEGATIVE (Negative)
--- NOTE | 2024-10-06 13:53 | HO.PM.IMPN ---
Subjective Subjective Date of Service: 10/06/24 Interval History: Patient was seen in follow up for continued yellow sputum, chest x-ray reveals that she possibly has atypical infection due to possible faint bilateral reticular nodular opacities to the lungs. She was recently discharged with pneumonia and sepsis from [facility]. She is afebrile, her white blood cell count is negative. She was started antibiotic treatment. On arrival to the unit patient is awake and alert, ambulating on unit no apparent distress, no increased work of breathing. Appears to be at baseline. Review of Systems Denies any shortness of breath, chest pain, dizziness, lightheadedness, abdominal pain or discomfort, nausea vomiting or diarrhea Physical Exam Exam: Exam: CONST: Alert and oriented, in NAD. Well nourished HEENT: Normocephalic, atraumatic, MMM, Eyes clear, Neck supple RESP: Lungs clear, RRR even and regular HEART:,RRR, S1, S2. No murmur, no edema GI:Abdomen Soft NT, ND. + BS times four :Deferred SKIN: Warm dry and intact, no visible lesions or rashes NEURO:CN II-XII Intact bilaterally, Sensation intact. Speech clear PSYCH: Normal affect Vital Signs: Vital Signs: Last Vital Signs Temp 98.2 F 10/06/24 12:16 Pulse 82 10/06/24 12:16 Resp 16 10/06/24 12:16 BP 115/75 10/06/24 12:16 Pulse Ox 95 10/06/24 12:16 O2 Del Method Room Air 10/06/24 12:16 BMI result Body Mass Index 25.9 Objective Data Active Medications Acetaminophen (Acetaminophen 325 Mg Tablet) 650 mg PO Q6H PRN PRN Reason: Headache/Pain, Scale 1-10 Last Admin: 10/03/24 20:30 Dose: 650 mg Documented By: JEFE Al Hydroxide/Mg Hydroxide (Magnesium Hydrox/Alum Hydrox 30 Ml Oral.Susp) 30 ml PO Q6H PRN PRN Reason: Heartburn/Nausea Last Admin: 10/02/24 16:12 Dose: 30 ml Documented By: EDOUARD Albuterol Sulfate (Albuterol Sulfate 90 Mcg 8 Gm Inhaler) 2 puff INHALE RQ6H PRN PRN Reason: Shortness of Breath Last Admin: 10/05/24 20:34 Dose: 2 puff Documented By: SHERRI Albuterol/Ipratropium (Albuterol/Iprat 2.5/0.5mg 3 Ml Ampul.Neb) 3 ml INHALE RQ4H WHILE AWAKE [facility] Last Admin: 10/06/24 13:17 Dose: 3 ml Documented By: GALLO Benztropine Mesylate (Benztropine Mesylate 0.5 Mg Tablet) 0.5 mg PO BID [facility] Last Admin: 10/06/24 08:10 Dose: 0.5 mg Documented By: EDOUARD Cefuroxime Axetil (Cefuroxime Axetil 500 Mg Tablet) 500 mg PO Q12H [facility] Last Admin: 10/06/24 13:21 Dose: 500 mg Documented By: EDOUARD Clonazepam (Clonazepam 0.5 Mg Tablet) 0.5 mg PO BID PRN PRN Reason: Anxiety Last Admin: 10/06/24 08:16 Dose: 0.5 mg Documented By: EDOUARD Clonidine HCl (Clonidine Hcl 0.1 Mg Tablet) 0.1 mg PO BID PRN; Protocol PRN Reason: Anxiety, mild Last Admin: 10/04/24 11:55 Dose: 0.1 mg Documented By: NICOCLAIRE Doxycycline Monohydrate (Doxycycline Monohydrate 100 Mg Capsule) 100 mg PO Q12H [facility] Stop: 10/13/24 07:59 Last Admin: 10/06/24 08:10 Dose: 100 mg Documented By: EDOUARD Gabapentin (Gabapentin 400 Mg Capsule) 800 mg PO TID [facility] Last Admin: 10/06/24 08:10 Dose: 800 mg Documented By: EDOUARD Guaifenesin (Guaifenesin 200 Mg/10 Ml 10 Ml Liquid) 10 ml PO Q6H PRN PRN Reason: Cough Magnesium Hydroxide (Milk Of Magnesia 30 Ml Oral.Susp) 30 ml PO DAILY PRN PRN Reason: Constipation Last Admin: 10/05/24 06:25 Dose: 30 ml Documented By: FLEMINM Methocarbamol (Methocarbamol 500 Mg Tablet) 500 mg PO BID [facility] Last Admin: 10/06/24 08:10 Dose: 500 mg Documented By: EDOUARD Nicotine (Nicotine 21 Mg Patch.Td24) 21 mg TRANSDERMA DAILY [facility] Last Admin: 10/06/24 08:13 Dose: 21 mg Documented By: EDOUARD Nicotine Polacrilex (Nicotine Polacrilex 2 Mg Gum) 4 mg BUCCAL Q2H PRN PRN Reason: Nicotine Cravings Nicotine Polacrilex (Nicotine Polacrilex Lozenge 2 Mg Lozenge) 2 mg BUCCAL Q2H PRN PRN Reason: Nicotine Cravings Last Admin: 10/04/24 15:43 Dose: 2 mg Documented By: ELLIS Olanzapine (Olanzapine 10 Mg Tablet) 10 mg PO BID [facility] Last Admin: 10/06/24 08:10 Dose: 10 mg Documented By: EDOUARD Omeprazole (Omeprazole 40 Mg Capsule.Dr) 40 mg PO DAILY@629 [facility] Last Admin: 10/06/24 06:49 Dose: 40 mg Documented By: SHERRI Oxybutynin Chloride (Oxybutynin Chloride 5 Mg Tablet) 5 mg PO BEDTIME [facility] Last Admin: 10/05/24 22:44 Dose: 5 mg Documented By: SHERRI Tiotropium Kingsley (Tiotropium Kingsley 2.5 Mcg 1 Puff/2.5 Mcg Mist.Inhal) 2 puff INHALE RDAILY [facility] Last Admin: 10/05/24 06:43 Dose: 2 puff Documented By: FLEMINRoberto Trazodone HCl (Trazodone Hcl 100 Mg Tablet) 100 mg PO BEDTIME [facility] Last Admin: 10/05/24 22:44 Dose: 100 mg Documented By: SHERRI Valacyclovir HCl (Valacyclovir Hcl 500 Mg Tablet) 500 mg PO BID [facility] Last Admin: 10/06/24 08:10 Dose: 500 mg Documented By: EDOUARD Labs 10/06/24 00:09 10/06/24 00:09 Labs: Laboratory Results - last 24 hr 10/06/24 10/06/24 00:09 09:34 MCV 82.4 MCH 26.6 L MCHC 32.3 RDW 13.9 Plt Count 250 D MPV 10.2 Immature Gran % (Auto) 0.4 Neut % (Auto) 67.7 Lymph % (Auto) 24.1 [place] % (Auto) 4.7 Eos % (Auto) 2.7 Baso % (Auto) 0.4 Lymph # (Auto) 2.4 [place] # (Auto) 0.5 Eos # (Auto) 0.3 Baso # (Auto) 0.0 Abs Immat Gran (auto) 0.04 H Absolute Neuts (auto) 6.9 Absolute Nucleated RBC 0.000 Nucleated RBC % (auto) 0.0 Anion Gap 12 Estim Creat Clear Calc 89.7 Estimated GFR > 60 Random Glucose 111 Lactic Acid 0.9 Calcium 9.2 D B-Natriuretic Peptide 96 Beta HCG, Quant < 2 Influenza Type A (PCR) NEGATIVE Influenza Type B (PCR) NEGATIVE RSV RNA Qual (PCR) NEGATIVE SARS-CoV-2 RNA (RT-PCR) NEGATIVE Assessment and Plan (1) Pneumonia: Status: Acute (2) COPD (chronic obstructive pulmonary disease): Status: Acute Plan Depressive disorder/SI/EtOH abuse/PTSD/bipolar disorder Treatment plan per Psychiatry team Patient anxious and nervous about leaving ?Pneumonia/COPD Viral studies negative for flu, RSV and COVID Patient is started on doxycycline and Ceftin orally as hemodynamics are stable. Chest x-ray 2 view notes possible atypical PNA with B reticulonodular opacities. She is afebrile and WBC WNL. Will repeat in am. Lactic acid negative. WBC 10.1, C02 slightly elevated. Blood culture pending, sputum not collected Not hypoxic, no tachycardia, no fever, no increased work of breathing. If she remains afebrile without leukocytosis may be discharged on p.o. antibiotics. Labs in am Ceftin for a total of 10 days, doxycycline for a total of 7 days Patient will need follow up with primary care Quality Stroke Does the patient have a stroke diagnosis?: No VTE Prior VTE?: No VTE Risk Level:: Medical - low VTE Device Contraindication: Treatment Not Indicated VTE Drug Contraindication: Treatment Not Indicated
[2024-10-07 07:36] VITALS: BP 85/51; PULSE 60; RESP 18; TEMP 36.6; O2SAT 95
[2024-10-07 08:10] VITALS: BP 91/50; PULSE 60; RESP 16; TEMP 36.3; O2SAT 95
[2024-10-07] MEDS: Tiotropium Bromide 2.5 mcg 1 PUFF/2.5 MCG MIST.INHAL 2 PUFF INHALE (08:31)
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
== END 2024-10-07 09:56 | disposition home or self-care (01) | DRG 753 ==
PROVIDERS: Clinical Nurse Specialist Psychiatric/Mental Health, Adult; Nurse Practitioner Family; Admitting Provider Psychiatry & Neurology Psychiatry; Responsible Provider Registered Nurse; Visit Provider Psychiatry & Neurology Psychiatry
DX: F31.9 Bipolar disorder, unspecified (principal); J18.9 Pneumonia, unspecified organism; R45.851 Suicidal ideations; J44.0 Chronic obstructive pulmonary disease with (acute) lower respiratory infection; F10.90 Alcohol use, unspecified, uncomplicated; F43.10 Post-traumatic stress disorder, unspecified; Z20.822 Contact with and (suspected) exposure to COVID-19; Z79.899 Other long term (current) drug therapy
CPT/HCPCS: 36415; 71046; 80048; 80061; 82607; 82746; 83036; 83605; 83735; 83880; 84439; 84443; 84702; 85025; 87040; 87637; 94640; 94664

== ENCOUNTER 2024-09-29 20:05 | Outpatient (BNV) | payer MEDICAID, SELFPAY | END 2024-10-06 | PROVIDERS: Admitting Provider Psychiatry & Neurology Psychiatry; Responsible Provider Registered Nurse; Visit Provider Radiology Diagnostic Radiology | DX: R05.1 Acute cough (principal) | CPT/HCPCS: 71046 ==

== ENCOUNTER → 2024-09-29 20:05 | Outpatient (BNV) | payer OTHER, SELFPAY | PROVIDERS: Admitting Provider Psychiatry & Neurology Psychiatry; Responsible Provider Registered Nurse; Visit Provider Registered Nurse | DX: F31.4 Bipolar disorder, current episode depressed, severe, without psychotic features (principal); F10.90 Alcohol use, unspecified, uncomplicated; J44.9 Chronic obstructive pulmonary disease, unspecified; J18.9 Pneumonia, unspecified organism | CPT/HCPCS: 90792; 99238 ==

== ENCOUNTER → 2024-09-29 20:05 | Outpatient (BNV) | payer OTHER, SELFPAY | PROVIDERS: Admitting Provider Psychiatry & Neurology Psychiatry; Visit Provider Nurse Practitioner Family | DX: J44.9 Chronic obstructive pulmonary disease, unspecified (principal) | CPT/HCPCS: 99221 ==